=== PATIENT | male | born 1940 | race American Indian/Alaskan Native ===

== ENCOUNTER 2018-02-02 13:00 | Emergency (ER) | payer MEDICARE ==
[2018-02-02 13:36] VITALS: PULSE 99; TEMP 98.9
[2018-02-02 14:42] LABS: BASO # 0.1 K/uL (0.0-0.2); EOS % 0.2 % (0.0-4.0); HEMOGLOBIN 14.9 g/dL (12.0-18.0); LYMPH # 2.7 K/uL (1.0-4.3); LYMPH % 27.7 % (20.0-40.0); MEAN CELL VOLUME 86.9 fL (80.0-94.0); MEAN CORPUSCULAR HEMOGLOBIN 29.9 pg (27.0-31.0); MEAN CORPUSCULAR HGB CONC 34.4 g/dL (33.0-37.0); MEAN PLATELET VOLUME 7.5 fL (7.2-11.7); MONO # 0.7 K/uL (0.0-0.8); MONO % 7.5 % (0.0-10.0); NEUT # 6.1 K/uL (1.8-7.0); NEUT % 63.6 % (50.0-75.0); NRBC % 0.1 % (0.0-2.0); RBC 4.99 Mil/uL (4.40-5.90); RED CELL DISTRIBUTION WIDTH 14.2 % (11.5-14.5); WHITE BLOOD COUNT 9.6 K/uL (4.8-10.8)
--- NOTE | 2018-02-02 15:38 | RAD ---
PROCEDURE: Right Hand Radiographs. HISTORY: right hand pain, swelling, r/o fx COMPARISON: None. FINDINGS: BONES: No acute fracture or destructive bony lesion identified. JOINTS: No dislocation or subluxation however moderate to severe joint space narrowing and articular cortical sclerosis appreciated throughout the distal interphalangeal joints diffusely as well as the interphalangeal joint of the thumb compatible osteoarthritis. Lesser similar changes are present the proximal interphalangeal joints. Further, late stage degenerative changes are identified at the basal joint. SOFT TISSUES: Soft tissue edema is appreciate the region of the lateral hand soft tissues and vascular calcifications seen the wrist and lateral hand soft tissues. OTHER FINDINGS: None. IMPRESSION: No acute fracture dislocation. 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 Lateral hand soft tissue edema is appreciated as well as vascular calcification in the wrist and hand.
[2018-02-02 15:58] LABS: ALBUMIN 4.1 g/dL (3.5-5.0); ALT/SGPT 20 U/L (21-72); AST/SGOT 25 U/L (17-59); BLOOD UREA NITROGEN 10 mg/dL (9-20); CALCIUM 9.1 mg/dl (8.6-10.4); GFR AFRICAN-AMERICAN > 60; GFR NON-AFRICAN AMERICAN > 60
--- NOTE | 2018-02-02 16:37 | C.PDOC ---
History Of Present Illness 77-year-old male, presents to the emergency department with complaints of non- traumatic right hand pain and swelling that started five days ago. Patient notes initially being in pain, and hand progressively worsened and became swollen. Denies a Hx of arthritis or gout. No numbness/weakness, or any other associated symptoms. No other complaints at this time. Time Seen by Provider: 02/02/18 14:13 Chief Complaint (Nursing): Abnormal Skin Integrity History Per: Patient History/Exam Limitations: no limitations Past Medical History Reviewed: Historical Data, Nursing Documentation, Vital Signs Vital Signs: Last Vital Signs Temp 98.9 F 02/02/18 13:31 Pulse 99 H 02/02/18 13:31 Resp 20 02/02/18 13:31 BP 204/132 H 02/02/18 13:31 Pulse Ox 97 02/02/18 16:46 - Medical History PMH: HTN Family History: States: No Known Family Hx - Social History Hx Tobacco Use: No Hx Alcohol Use: No Hx Substance Use: No - Immunization History Hx Tetanus Toxoid Vaccination: No Hx Influenza Vaccination: No Hx Pneumococcal Vaccination: No Review Of Systems Constitutional: Negative for: Fever, Chills Cardiovascular: Negative for: Chest Pain Respiratory: Negative for: Shortness of Breath Gastrointestinal: Negative for: Nausea, Vomiting Musculoskeletal: Positive for: Hand Pain (right, +swelling) Skin: Negative for: Rash Neurological: Negative for: Weakness, Numbness Physical Exam - Physical Exam Appears: Non-toxic, No Acute Distress, Other (mild discomfort) Skin: Normal Color, Warm, Dry, No Rash Head: Normacephalic Eye(s): bilateral: PERRL Nose: Normal Oral Mucosa: Moist Lips: Normal Appearing Neck: Normal ROM Chest: Symmetrical Cardiovascular: Rhythm Regular, No Murmur Respiratory: Normal Breath Sounds, No Accessory Muscle Use Extremity: Tenderness, Capillary Refill (<2 seconds), No Deformity, Swelling, Other (right hand: at first and second mcp's there is moderate swelling, tenderness to palpation and mild erythema. ) Pulses: Left Radial: Normal, Right Radial: Normal Neurological/Psych: Oriented x3, Normal Speech ED Course And Treatment - Laboratory Results Result Diagrams: 02/02/18 14:37 02/02/18 15:32 O2 Sat by Pulse Oximetry: 97 (RA) Pulse Ox Interpretation: Normal - Other Rad RIGHT HAND XRAY X-Ray: Viewed By Me, Read By Radiologist Interpretation: Accession No. : [id number]. Patient Name / ID : JHON CHAPMAN / [id number]. Exam Date : 02/02/2018 14:45:33 ( Approved ). Study Comment : Sex / Age : M / 77Y. Creator : Ole Lou MD. Dictator : Ole Lou MD. Guest Services Ambassador : Fingerprint Expert : Ole Lou MD. Approver2 : Report Date : 02/02/2018 15:36:15. My Comment : . PROCEDURE: Right Hand Radiographs. HISTORY: right hand pain, swelling, r/o fx. COMPARISON: None. FINDINGS: BONES: No acute fracture or destructive bony lesion identified. JOINTS: No dislocation or subluxation however moderate to severe joint space narrowing and articular cortical sclerosis appreciated throughout the distal interphalangeal joints diffusely as well as the interphalangeal joint of the thumb compatible osteoarthritis. Lesser similar changes are present the proximal interphalangeal joints. Further, late stage degenerative changes are identified at the basal joint. SOFT TISSUES: Soft tissue edema is appreciate the region of the lateral hand soft tissues and vascular calcifications seen the wrist and lateral hand soft tissues. OTHER FINDINGS: None. IMPRESSION: No acute fracture dislocation. 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 Lateral hand soft tissue edema is appreciated as well as vascular calcification in the wrist and hand. Progress Note: Bloodwork, cultures and XR hand ordered and reviewed. Patient treated with Norvasc, Cleocin and Toradol Disposition Counseled Patient/Family Regarding: Studies Performed, Diagnosis, Need For Followup, Rx Given - Disposition Referrals: [facility] [Outside] Disposition: HOME/ ROUTINE Disposition Time: 16:45 Condition: STABLE Additional Instructions: FOLLOW UP WITH YOUR DOCTOR IN 1-2 DAYS USE MEDICATIONS DIRECTED RETURN TO ER IMMEDIATELY IF YOUR SYMPTOMS WORSEN Prescriptions: Clindamycin [Cleocin] 300 mg PO TID #21 cap Naproxen [Naprosyn] 1 tab PO BID PRN #25 tab PRN Reason: Pain Instructions: Osteoarthritis (DC), Cellulitis (Skin Infection), Adult (DC) Forms: [employer] (Monegasque) Print Language: FINNISH - POA Present On Arrival: None - Clinical Impression Clinical Impression: Cellulitis of right hand, Arthritis of hand - Scribe Statement The provider has reviewed the documentation as recorded by the Scribe (Jolie Basilio) All medical record entries made by the Scribe were at my direction and personally dictated by me. I have reviewed the chart and agree that the record accurately reflects my personal performance of the history, physical exam, medical decision making, and the department course for this patient. I have also personally directed, reviewed, and agree with the discharge instructions and disposition.
[2018-02-02 17:45] VITALS: BP 150/86; RESP 16; O2SAT 98
== END 2018-02-02 18:18 | disposition home or self-care (01) ==
LOC: C.ER 13:00
DX: L03.113 Cellulitis of right upper limb (principal); M13.841 Other specified arthritis, right hand; I10 Essential (primary) hypertension
CPT/HCPCS: 73130; 80053; 85025; 85651; 87040; 96374; 99284; J1885